=== PATIENT | male | born 2000 | race Caucasian/White ===

== ENCOUNTER 2021-10-28 02:34 | Emergency (ER) | payer OTHER ==
[~2021-10-28] VITALS: Ht 177.8 cm; Wt 61.4 kg
[2021-10-28 02:38] VITALS: BP 146/90
[2021-10-28 03:27] VITALS: PULSE 68; TEMP 98.1
== END 2021-10-28 03:30 | disposition home or self-care (01) ==
LOC: COL.ER 02:34
DX: M79.602 Pain in left arm (principal)